=== PATIENT | female | born 1995 | race Caucasian/White ===

== ENCOUNTER 2017-08-22 13:03 | Inpatient (IN) | payer OTHER ==
[2017-08-22] VITALS (12 sets, daily range): BP systolic 121–147; BP diastolic 69–81; PULSE 65–75; TEMP 97.8–98.5
[~2017-08-22] VITALS: Ht 170.2 cm; Wt 76.4 kg
[2017-08-22] MEDS ORDERED: PRENATAL (13:30)
[2017-08-22 14:28] LABS: BASO % 0.2 % (0.0-2.0); EOS # 0.1 (0.0-0.7); EOS % 0.6 % (0-4.0); GRAN # 11.2 (1.4-6.5); GRAN % 80.1 % (42.2-75.2); HEMOGLOBIN 11.7 g/dl (12.5-16.0); LYMPH # 1.7 (1.2-3.4); MEAN CELL VOLUME 89 fl (80.0-100.0); MEAN CORPUSCULAR HEMOGLOBIN 30 pg (27.0-31.0); MEAN CORPUSCULAR HGB CONC 33 g/dl (33.0-37.0); MEAN PLATELET VOLUME 13.3 fl (7.4-10.4); MONO # 0.9 (0.1-0.6); MONO % 6.6 % (1.7-9.3); PLATELET COUNT 171 K/mm3 (130-400); RED BLOOD COUNT 3.93 M/mm3 (4.10-5.30)
[2017-08-22 14:41] LABS: HEMATOCRIT 35.1 % (37.0-47.0)
[2017-08-23 01:00] VITALS: BP 116/69; PULSE 80
[2017-08-23 04:50] VITALS: BP 121/79; PULSE 80
[2017-08-23 07:05] LABS: HEMOGLOBIN 10.6 g/dl (12.5-16.0)
[2017-08-23 07:17] LABS: HEMATOCRIT 32.3 % (37.0-47.0)
[2017-08-23 08:41] VITALS: BP 118/71; PULSE 89; TEMP 98.4
[2017-08-23 17:14] VITALS: BP 117/67; PULSE 73; TEMP 97.8
[2017-08-23 22:25] VITALS: BP 120/64; PULSE 70; TEMP 97.9
[2017-08-24 07:50] VITALS: BP 105/74; PULSE 73; TEMP 97.9
== END 2017-08-24 11:30 | disposition home or self-care (01) | DRG 775 ==
LOC: LDRO 13:03 → LDR 13:38 → OB 13:38
PROVIDERS: Obstetrics & Gynecology
PROC: 10E0XZZ Delivery of Products of Conception, External Approach (ICD-10-PCS; principal; 2017-08-22)
PROC: 0KQM0ZZ Repair Perineum Muscle, Open Approach (ICD-10-PCS; 2017-08-22)
DX: O76 Abnormality in fetal heart rate and rhythm complicating labor and delivery (principal); O70.1 Second degree perineal laceration during delivery; Z3A.39 39 weeks gestation of pregnancy; Z37.0 Single live birth
CPT/HCPCS: J2590; J7120

== ENCOUNTER 2019-05-28 11:03 | Inpatient (IN) | payer MEDICAID ==
[~2019-05-28] VITALS: Ht 170.2 cm; Wt 75.5 kg
[2019-05-28] VITALS (46 sets, daily range): BP systolic 95–134; BP diastolic 51–76; PULSE 57–88; TEMP 97.5–97.8
[~2019-05-28 11:03] MED LIST: PRENATAL
--- NOTE | 2019-05-28 11:10 | NUR ---
1110- Pt arrives on unit ambulatory. sent over from office for monitoring. 1115- Pt into bed, EFM and TOCO on, tracing intermittently, FHR variable heard by RN, EFM adjusted, when tracing 95 bpm noted, increases over 30secs to 120bpm. VSS. Assessment completed. Pt complains of back discomfort. Denies VB, LOF. +FM. 1123- Pt repositioned to WL, EFM adjusted and noted to be tracing well. 1130- IV start and labs obtained per MD order. MD coming to hospital to evaluate. Warm blanket and water provided. Call light within reach.
[2019-05-28 13:14] LABS: BASO % 0.2 % (0.0-2.0); EOS # 0.1 (0.0-0.7); GRAN % 69.4 % (42.2-75.2); HEMATOCRIT 44.3 % (37.0-47.0); HEMOGLOBIN 14.4 g/dl (12.5-16.0); LYMPH # 1.9 (1.2-3.4); LYMPH % 21.7 % (20.0-51.0); MEAN CELL VOLUME 94 fl (80.0-100.0); MEAN CORPUSCULAR HEMOGLOBIN 31 pg (27.0-31.0); MEAN CORPUSCULAR HGB CONC 33 g/dl (33.0-37.0); MEAN PLATELET VOLUME 12.6 fl (7.4-10.4); MONO # 0.7 (0.1-0.6); MONO % 7.5 % (1.7-9.3); PLATELET COUNT 162 K/mm3 (130-400); REDCELL DISTRIBUTION WIDTH-CV 13.5 % (11.5-14.5)
[2019-05-28 16:14] LABS: TRICYCLIC ANTIDEPRESS URINE NEGATIVE
[2019-05-29] VITALS (18 sets, daily range): BP systolic 98–125; BP diastolic 54–77; PULSE 60–93; TEMP 97.8–98.6
--- NOTE | 2019-05-29 01:20 | NUR ---
0120 URGE TO PUSH WITH CONTRACTIONS. DR MELVIN NOTIFIED AND READIED FOR DELIVERY.
--- NOTE | 2019-05-29 01:26 | NUR ---
0126 DR MELVIN AT BEDSIDE. COMPLETE DILITATION AND INSTRUCTED TO PUSH WITH CONTRACTIONS 0134 DEL VIABLE FEMALE OVER 2 DEGREE LAC. IV CONTS TO INFUSE.
--- NOTE | 2019-05-29 03:00 | NUR ---
0300 IV INFUSED AND TO INT. UP TO BR WITH ASSIST. VOIDED 200CC. PERICARE DONE. AMB TO 219 AND GHAZALA WELL.
--- NOTE | 2019-05-29 08:10 | NUR ---
Patient calls out and states she needs a new gown, This RN to bedside and patient in the bathroom with 3 large fist sized clots expelled and chucks on bed having a fair amount of blood. Assisted patient with pericare. Patient denies feeling light headed/dizzy. Patient back to bed and fundal massage done/firm/bleeding within normal limits. Will continue to monitor
--- NOTE | 2019-05-29 08:50 | NUR ---
Patient calls out and states she is feeling more bleeding. This RN at bedside and fundal massage done. Large fist size clot expelled and moderate amount of bleeding noted. Laila RN at bedside to assist. Pericare done and new pads under patient. Patient continues to have bleeding and another large clot expelled. Patient pale and feeling very light headed/dizzy. Pads/blood clots weights. The first weighing 0.685cc and second weighing 1370cc. Dr. Sanchez notified. 0855: called and notifed and orders methergine PO and start IV and give LR bolus and on his way. Dr. Anderson at bedside and assesses patient. Patient stable. 0905: IV started in right hand per Laila RN, blood drawn and to lab, LR infusing. at bedside and assesses patient and plan of care discussed. Patient agrees with plan.
[2019-05-29 09:56] LABS: BASO % 0.2 % (0.0-2.0); EOS % 0.1 % (0-4.0); GRAN # 12.4 (1.4-6.5); GRAN % 82.5 % (42.2-75.2); LYMPH # 1.6 (1.2-3.4); LYMPH % 10.5 % (20.0-51.0); MEAN CELL VOLUME 93 fl (80.0-100.0); MEAN CORPUSCULAR HGB CONC 33 g/dl (33.0-37.0); MEAN PLATELET VOLUME 12.2 fl (7.4-10.4); MONO % 6.4 % (1.7-9.3); PLATELET COUNT 182 K/mm3 (130-400); RED BLOOD COUNT 3.77 M/mm3 (4.10-5.30); REDCELL DISTRIBUTION WIDTH-CV 13.5 % (11.5-14.5)
[2019-05-29 09:58] LABS: HEMATOCRIT 35.1 % (37.0-47.0); HEMOGLOBIN 11.7 g/dl (12.5-16.0); MEAN CORPUSCULAR HEMOGLOBIN 31 pg (27.0-31.0)
[2019-05-30 01:00] VITALS: BP 101/48; PULSE 76; TEMP 98.1
[2019-05-30 07:44] LABS: HEMATOCRIT 25.9 % (37.0-47.0); HEMOGLOBIN 8.5 g/dl (12.5-16.0)
[2019-05-30 07:45] VITALS: BP 109/54; PULSE 65; TEMP 97.3
[2019-05-30] MEDS ORDERED: IBU600 MG PO (10:08)
== END 2019-05-30 15:20 | disposition home or self-care (01) | DRG 807 ==
LOC: LDRO 11:03 → LDR 12:33 → OB 12:33
PROVIDERS: ADMIT Obstetrics & Gynecology
PROC: 10E0XZZ Delivery of Products of Conception, External Approach (ICD-10-PCS; principal; 2019-05-29)
PROC: 0KQM0ZZ Repair Perineum Muscle, Open Approach (ICD-10-PCS; 2019-05-29)
PROC: 10907ZC Drainage of Amniotic Fluid, Therapeutic from Products of Conception, Via Natural or Artificial Opening (ICD-10-PCS; 2019-05-29)
PROC: 3E033VJ Introduction of Other Hormone into Peripheral Vein, Percutaneous Approach (ICD-10-PCS; 2019-05-29)
DX: O48.0 Post-term pregnancy (principal); Z37.0 Single live birth; O76 Abnormality in fetal heart rate and rhythm complicating labor and delivery; O99.62 Diseases of the digestive system complicating childbirth; K21.9 Gastro-esophageal reflux disease without esophagitis; O70.1 Second degree perineal laceration during delivery; Z3A.41 41 weeks gestation of pregnancy
CPT/HCPCS: J2590; J7120

== ENCOUNTER 2021-08-16 04:20 | Inpatient (IN) | payer MEDICAID ==
[~2021-08-16] VITALS: Ht 170.2 cm; Wt 78.2 kg
[2021-08-16] VITALS (14 sets, daily range): BP systolic 102–1123; BP diastolic 59–76; PULSE 67–82; TEMP 97.8–98.5
[~2021-08-16 04:20] MED LIST changes: +IBU600 MG PO
--- NOTE | 2021-08-16 04:26 | NUR ---
AMBULATORY TO UNIT FOR LABOR ASSESSMENT, ACCOMPANIED BY SPOUSE. DEEP BREATHING AND TENSING WITH CONTRACTIONS. ORIENTED TO ROOM, MONITOR, PLAN OF CARE.
--- NOTE | 2021-08-16 05:20 | NUR ---
reports "she's feeling pushy" SVE as noted, Dr called to come for delivery. 0541 Dr Ball into room, pt set and prepped for delivery. 0558 male infant after reduction of nuchal cord X [address] Ball[address] 0603 Placenta delivers spont and intact. Pitocin gtt started at bolus rate.
[2021-08-16 05:46] LABS: BASO % 0.2 % (0.0-2.0); EOS # 0.1 K/mm3 (0.0-0.7); EOS % 0.5 % (0.0-4.0); GRAN # 6.7 K/mm3 (1.4-6.5); GRAN % 71.4 % (42.2-75.2); HEMOGLOBIN 11.4 g/dl (12.5-16.0); LYMPH # 1.9 K/mm3 (1.2-3.4); LYMPH % 20.6 % (20.0-51.0); MEAN CELL VOLUME 89 fl (80.0-100.0); MEAN CORPUSCULAR HEMOGLOBIN 29 pg (27-31); MEAN CORPUSCULAR HGB CONC 33 g/dl (33.0-37.0); MEAN PLATELET VOLUME 12.9 fl (7.4-10.4); MONO # 0.7 K/mm3 (0.1-0.6); MONO % 6.9 % (1.7-9.3); PLATELET COUNT 166 K/mm3 (130-400); RED BLOOD COUNT 3.92 M/mm3 (4.10-5.30); REDCELL DISTRIBUTION WIDTH-CV 13.2 % (11.5-14.5)
--- NOTE | 2021-08-16 06:20 | NUR ---
Perineal repair complete,pericare performed, ice pack to perineum, bed together.
[2021-08-16] MEDS ORDERED: IBU600 MG PO (22:05)
[2021-08-17 06:32] LABS: HEMATOCRIT 36.7 % (37.0-47.0)
[2021-08-17 07:15] VITALS: BP 95/52; PULSE 69; TEMP 98
--- NOTE | 2021-08-17 09:30 | NUR ---
Initial visit attempt; Family resting, Furniture Mover Driver left card offering God's blessings, Congratulations for the of their son and information regarding the availability of [facility] at our hospital.
[2021-08-17 13:00] VITALS: BP 110/57; PULSE 71; TEMP 98
--- NOTE | 2021-08-17 15:10 | NUR ---
ALL AR PAPERWORK REVIEWED AND UNDERSTOOD. INFANT SAFELY AND SECURELY IN CARSEAT. ALL BELONGINGS ACCOUNTED FOR. PT IN STABLE CONDITION. VITAL SIGNS STABLE. LOCHIA SCANT. PT AND SPOUSE DENY FURTHER QUESTION OR CONCERNS.
== END 2021-08-17 15:10 | disposition home or self-care (01) | DRG 807 ==
LOC: LDRO 04:20 → OB 05:18 → LDR 05:18 → OB 08:00
PROVIDERS: Student in an Organized Health Care Education/Training Program; ADMIT Obstetrics & Gynecology
PROC: 10E0XZZ Delivery of Products of Conception, External Approach (ICD-10-PCS; principal; 2021-08-16)
PROC: 0KQM0ZZ Repair Perineum Muscle, Open Approach (ICD-10-PCS; 2021-08-16)
DX: O69.81X0 Labor and delivery complicated by cord around neck, without compression, not applicable or unspecified (principal); Z37.0 Single live birth; Z3A.39 39 weeks gestation of pregnancy
CPT/HCPCS: J2590; J7120